=== PATIENT | female | born 1980 | race Caucasian/White ===

== ENCOUNTER 2016-06-03 01:17 | Emergency (ER) | payer SELFPAY ==
[~2016-06-03] VITALS: Ht 167.6 cm; Wt 72.6 kg
[2016-06-03 01:38] VITALS: BP 118/66
[2016-06-03] MEDS ORDERED: ONDANSETRON 4 MG (ZOFRAN) ORAL DISSOLVE TAB SL ONE (01:45)
== END 2016-06-03 02:32 | disposition left against medical advice (07) ==
LOC: EDUNIT# 01:17 → ER 01:22
DX: R42 Dizziness and giddiness (principal); R11.10 Vomiting, unspecified; Z53.21 Procedure and treatment not carried out due to patient leaving prior to being seen by health care provider
CPT/HCPCS: 99283

== ENCOUNTER → 2019-06-11 | Outpatient (CLI) | payer BC ==
--- NOTE | 2019-06-11 13:04 | Diagnostic Imaging Report ---
PROCEDURE: US Non-ob pelvis comp/trans. TECHNIQUE: Multiple realtime grayscale images were obtained of the pelvis in various projections endovaginally. Transabdominal imaging was also performed. INDICATION: Enlarged uterus. FINDINGS: Uterus is anteverted and measures 9.5 x 6.3 x 8.6 cm. Endometrial thickness is 1.3 cm. There are no discrete myometrial masses. Both ovaries are normal in size, morphology and demonstrate normal blood flow. There are no adnexal masses. There is no free pelvic fluid. IMPRESSION: Thickened heterogeneous endometrium measuring up to 1.3 cm. Presumably related to proliferative phase of patient's menstrual cycle. Recommend clinical correlation and follow-up ultrasound as clinically warranted. Otherwise unremarkable pelvic ultrasound. Dictated by: Dictated on workstation # [id number]
--- NOTE | 2019-06-12 11:10 | Diagnostic Imaging Report ---
INDICATION: Screening The current study was also evaluated with a Computer Aided Detection (CAD) system. 3-D Tomographic imaging was also performed. No prior examinations are available for comparison. This is baseline exam. FINDINGS: There has been bilateral breast augmentation with implant. The thyroid gland tissue is heterogeneously dense. There are benign type calcifications. There is no dominant mass, lesion or suspicious calcification identified. Skin, nipples and axilla are unremarkable. IMPRESSION: Category 2 benign ACR BI-RADS Category 2: Benign findings. Result letter will be mailed to the patient. Note: At least 10% of breast cancer is not imaged by mammography. Dictated by: Dictated on workstation # [id number]
== END ==
LOC: RAD 11:02
PROVIDERS: ATTEND Obstetrics & Gynecology
DX: Z12.31 Encounter for screening mammogram for malignant neoplasm of breast (principal); N85.2 Hypertrophy of uterus
CPT/HCPCS: 76830; 76856; 77067

== ENCOUNTER 2019-06-17 05:51 | Outpatient (CLI) | payer BC ==
[~2019-06-17] VITALS: Ht 165.1 cm; Wt 75.9 kg
[2019-06-17] MEDS ORDERED: ASCO500C17 PO (12:32)
[2019-06-17] MEDS ORDERED: FERR325T18 PO (12:32)
[2019-06-17] MEDS ORDERED: CHOL500049 PO (12:32)
[2019-06-17] MEDS ORDERED: MULT-884 PO (12:32)
== END 2019-06-17 12:39 | disposition home or self-care (01) ==
LOC: PREOP 05:51
PROVIDERS: ATTEND Obstetrics & Gynecology
DX: Z01.818 Encounter for other preprocedural examination (principal)

== ENCOUNTER 2019-06-21 06:55 | Day surgery (SDC) | payer BC ==
[2019-06-21] VITALS (14 sets, daily range): BP systolic 75–122; BP diastolic 42–102
[~2019-06-21] VITALS: Ht 165.1 cm; Wt 75.9 kg
[~2019-06-21 06:55] MED LIST: ASCO500C17 PO; CHOL500049 PO; FERR325T18 PO; MULT-884 PO
[2019-06-21] MEDS ORDERED: ceFAZolin INJECTION 1,000 MG in WATER (STERILE) FOR INJECTION 10 ML IV ONE (07:15)
[2019-06-21] MEDS ORDERED: metroNIDAZOLE 500MG/100ML IVPB 100 ML IV ONE (07:15)
[2019-06-21] MEDS: LACTATED RINGERS 1,000 ML IV PRN ×2 (07:23→09:30)
[2019-06-21] MEDS ORDERED: CATHETER FLUSH 10 ML SYR IV PRN (07:30)
[2019-06-21 07:32] LABS: BASOPHILS % (AUTO) 0 % (0-10); EOSINOPHILS # (AUTO) 0.1 10^3/uL (0.0-0.3); EOSINOPHILS % (AUTO) 2 % (0-10); HEMATOCRIT 37 % (35-52); HEMOGLOBIN 12.1 G/DL (11.5-16.0); LYMPHOCYTES # (AUTO) 1.3 X 10^3 (1.0-4.0); LYMPHOCYTES % (AUTO) 31 % (12-44); MEAN CORPUSCULAR HEMOGLOBIN 30 PG (25-34); MEAN CORPUSCULAR HGB CONC 33 G/DL (32-36); MEAN CORPUSCULAR VOLUME 92 FL (80-99); MEAN PLATELET VOLUME 11.1 FL (7.4-10.4); MONOCYTES # (AUTO) 0.4 X 10^3 (0.0-1.0); MONOCYTES % (AUTO) 8 % (0-12); NEUTROPHILS # (AUTO) 2.5 X 10^3 (1.8-7.8); NEUTROPHILS % (AUTO) 58 % (42-75); PLATELET COUNT 192 10^3/uL (130-400); RED CELL DISTRIBUTION WIDTH 13.5 % (10.0-14.5); WHITE BLOOD COUNT 4.2 10^3/uL (4.3-11.0)
[2019-06-21] MEDS ORDERED: BUPIVACAINE 0.25% 30 ML (SENSORCAINE) VIAL ONE (08:02)
[2019-06-21] MEDS ORDERED: SEVOFLURANE (ULTANE) 15 ML INHAL SOLN ONE ×4 (08:04→10:15)
[2019-06-21] MEDS ORDERED: proPOfol 200 MG/20 ML (DIPRIVAN) VIAL IV ONE (08:04)
[2019-06-21] MEDS ORDERED: ONDANSETRON 4 MG/2 ML (SDV) Z0FRAN ONE (08:04)
[2019-06-21] MEDS ORDERED: DEXAMETHASONE 10 MG/ML (DECADRON) 1 ML VIAL ONE (08:04)
[2019-06-21] MEDS ORDERED: ROCURONIUM 10 MG/ML 5 ML SYRINGE IV ONE (08:04)
[2019-06-21] MEDS ORDERED: fentaNYL INJECTION 100 MCG/2 ML AMP ONE ×2 (08:05→10:19)
[2019-06-21] MEDS ORDERED: MIDAZOLAM 2 MG/2 ML (VERSED) VIAL ONE (08:05)
--- NOTE | 2019-06-21 08:09 | Progress Note-Pre Operative ---
Pre-Operative Progress Note H&P Reviewed The H&P was reviewed, patient examined and no changes noted. Date Seen by Provider: Jun 21, 2019 Time Seen by Provider: 08:00 Date H&P Reviewed: Jun 21, 2019 Time H&P Reviewed: 07:30 Pre-Operative Diagnosis: menorrhagia, hydrosalpinx/tubal cysts, thickened endometrium MANUEL RUSSO DO Jun 21, 2019 08:09
[2019-06-21] MEDS ORDERED: KETOROLAC 30 MG/ML VIAL ONE (10:18)
[2019-06-21] MEDS ORDERED: D5 LR IV SOLUTION 1,000 ML IV SCH (10:29)
--- NOTE | 2019-06-21 10:29 | Operative Report ---
Operative Report Date of Procedure/Surgery Jun 21, 2019 Surgeon (s) MANUEL RUSSO DO Language Specialist (s): None Post-Operative Diagnosis endometrial polyp menorrhagia endometriosis hydrosalpinx Procedure Performed hysteroscopy with dilation and curettage, Samanta ablation laparoscopy with fulgeration of endometriosis bilateral salpingectomy Description of Procedure Anesthesia Type: General Estimated blood loss (mL): minimal Specimen(s) collected/removed endometrial curettings bilateral tubes Description of the Procedure with informed consent the patient was taken to the operating room where general anesthesia was found to be adequate. She was prepped and draped in the usual sterile fashion in the dorsolithotomy position. A salgado catheter was placed in the bladder, to be removed after the surgery. A speculum was placed in the vagina and the cervix was grasped with a tenaculum. The cervix was gently dilated with cervical dilators and the uterus was then gently sounded. The uterine length was noted to be 6.2 cm. A hysteroscope was done revealing the above mentioned findings. I then did a curette with a sharp curette removing the polypoid and proliferative tissue. there also appeared to be a posterior submucosal fibroid. I then did a Samanta endometrial ablation with the standard procedure. After taking the proper measurements, the device was initiated and deployed and the ablation for 120 seconds. I then removed the instruments from the vagina and a sponge stick was placed in the posterior culdesac to provide a means of manipulation of the uterus. the patient was repositioned and then the umbilicus was injected with 0.5% Marcaine. A 5 mm skin incision was made in the umbilicus and the veress needle was inserted and intraabdominal placement was confirmed with a saline drop test and a drop in pressure. A 5 mm trocar was inserted under direct visualization with the [employer]. Two additional trocars were placed in the left lower quadrant lateral to the recuts muscles and avoiding the inferior epigastric vessels. I then elevated each tube and incised the mesosalpinx with the Harmonic scalpel and the clamped the tube at the cornu. I clamped, cauterized and transected the tubes bilaterally removing each tube. These were removed from the abdomen with the endocatch and sending for pathology. I then suctioned the fluid from the pelvis and then cauterized the endometriosis in the culdesac and on the right uterosacral ligaments. the pelvis was irrigated again. The instruments and the gas were removed from the abdomen and the fascial incision was closed with 0 Vicryl in a figure of eight fashion. The skin then closed with 4-0 Monocryl and then skin glue. Bandages were placed. The patient was then awakened and taken to recovery in a stable condition. Sponge, lap, needle and instrument counts were correct times two. Findings of the Procedure enlarged uterus with proliferative, polypoid appearing tissue normal tubes with mild clubbing endometriosis and free fluid in the culdesac normal appendix Allergies and Home Medications Allergies Coded Allergies: No Known Drug Allergies (Unverified , 10/19/10) Home Medications Acetaminophen 500 Mg Tablet, 500 MG PO Q8H Prescribed by: MANUEL RUSSO on 06/21/19 1032 Ascorbic Acid 500 Mg Capsule, 500 MG PO DAILY, (Reported) Cholecalciferol (Vitamin D3) 50,000 Unit Capsule, 50,000 UNIT PO twice a week, (Reported) Ferrous Sulfate 325 Mg Tablet, 325 MG PO DAILY, (Reported) Ibuprofen 600 Mg Tablet, 600 MG PO Q6H Prescribed by: MANUEL RUSSO on 06/21/19 1032 Multivits,Ca,Minerals/Iron/FA 1 Each Tablet, 1 EACH PO DAILY, (Reported) Oxycodone Hcl 5 Mg Tab, 5 MG PO Q4H PRN for PAIN-SEVERE Prescribed by: MANUEL RUSSO on 06/21/19 1032 Patient Home Medication List Home Medication List Reviewed: Yes MANUEL RUSSO DO Jun 21, 2019 10:29
[2019-06-21] MEDS ORDERED: ACETAMINOPHEN 500 MG TAB (TYLENOL) PO PRN (10:30)
[2019-06-21] MEDS ORDERED: KETOROLAC 30 MG/ML VIAL IVP ONE (10:30)
[2019-06-21] MEDS ORDERED: ONDANSETRON 4 MG/2 ML (SDV) Z0FRAN IVP PRN (10:30)
[2019-06-21] MEDS ORDERED: ACET-2267 PO (10:32)
[2019-06-21] MEDS ORDERED: OXC5T PO (10:32)
[2019-06-21] MEDS ORDERED: IBUP-1773 PO (10:32)
--- NOTE | 2019-06-21 10:33 | Discharge Inst-Women's Service ---
Discharge Inst-Women's Serv Depart Medication/Instructions New, Converted or Re-Newed RX: RX on Chart Final Diagnosis menorrhagia endometrial polyp endometriosis Problems Reviewed?: Yes Consults/Follow Up Additional Follow Up: Yes (1-2 weeks/Christina and 6 weeks/Armando) Activity Activity: Activity as Tolerated Driving Instructions: No Driving for 24 Hours NO SMOKING: NO SMOKING Nothing Inside Vagina: No Douching, No [place], No Tampons Diet Discharge Diet: No Restrictions Symptoms to Report to : Bleeding Excessive, Pain Increased, Fever Over 101 Degrees F, Vaginal Bleeding Increase, Cramps in Feet or Legs, Vaginal Discharge Foul For Any Problems or Questions: Contact Your Physician Skin/Wound Care Infection Signs and Symptoms: Increased Redness, Foul Odor of Wound, Increased Drainage, Skin Itchy or Has a Rash, Increased Swelling, Temperature Above 101 F Operative Area Clean and Dry: You May Remove Bandage (in 3 days) Stitches/Maria Luisa/Dermabond: Dermabond Bathing Instructions: MANUEL Scruggs DO Jun 21, 2019 10:33
--- NOTE | 2019-06-21 10:39 | Anesthesia-General Post-Op ---
General Patient Condition Mental Status/LOC: Same as Preop Cardiovascular: Satisfactory Nausea/Vomiting: Absent Respiratory: Satisfactory Pain: Controlled Complications: Absent Post Op Complications Complications None Follow Up Care/Instructions Patient Instructions None needed. Anesthesia/Patient Condition Patient Condition Patient is doing well, no complaints, stable vital signs, no apparent adverse anesthesia problems. No complications reported per nursing. EULALIO NORMAN CRNA Jun 21, 2019 10:39
[2019-06-21] MEDS ORDERED: fentaNYL INJECTION 100 MCG/2 ML AMP IVP ONE ×2 (10:45→12:30)
[2019-06-21] MEDS ORDERED: MEPERIDINE (DEMEROL) INJ 50 MG/ML IVP ONE (10:45)
[2019-06-21] MEDS ORDERED: morphine INJ 10 MG/ML 1ML (SYR OR VIAL) IVP ONE (10:45)
[2019-06-21] MEDS: ONDANSETRON 4 MG/2 ML (SDV) Z0FRAN IVP PRN ×2 (10:49→11:28)
[2019-06-21] MEDS ORDERED: IBUPROFEN 800 MG (MOTRIN) TAB PO SCH (12:00)
--- NOTE | 2019-06-21 12:10 | NUR ---
PT C/O PERSISTENT NAUSEA ET SEVERE PAIN NEAR UMBILICAL INCISION. WING SCORER NOTIFIED. ORDERS REC'D
[2019-06-21] MEDS ORDERED: PROMETHAZINE INJ 25 MG/ML (PHENERGAN) AMP ONE (12:13)
[2019-06-21] MEDS ORDERED: D5 LR IV SOLUTION 1,000 ML IV ONE (12:28)
[2019-06-21] MEDS ORDERED: PROMETHAZINE INJ 25 MG/ML (PHENERGAN) AMP IVP ONE (12:30)
--- NOTE | 2019-06-21 12:45 | NUR ---
PT RESTING WITH EYES CLOSED. RESPS EVEN ET UNLABORED.
--- NOTE | 2019-06-22 16:23 | Anesthesia-General Post-Op ---
General Patient Condition Mental Status/LOC: Same as Preop Cardiovascular: Satisfactory Nausea/Vomiting: Absent Respiratory: Satisfactory Pain: Controlled Complications: Absent Post Op Complications Complications None Follow Up Care/Instructions Patient Instructions None needed. Anesthesia/Patient Condition Patient Condition Patient is doing well, no complaints, stable vital signs, no apparent adverse anesthesia problems. No complications reported per nursing. EULALIO NORMAN CRNA Jun 22, 2019 16:23
--- OUTSIDE RECORDS SUMMARY | 2019-06-27 13:24 | XMS REPORT ---
Author Author [employer] Organization [employer] Address [address] [address] Care Team Providers Care Spotlight Operator Name Role Phone DOT MARTINEZ MD Unavailable Unavailable Unavailable Unavailable DOT MARTINEZ MD Unavailable Unavailable MANUEL RUSSO DO Unavailable Unavailable DO Ary DANIEL PCP Allergies Normalized Allergy Reported Date of Reaction(s) Care Provider Facility Allergy Type classification allergen Allergy Onset DA (3 Unclassified No Known Drug 10-19-2010 - no information DOT Not Available sources.) Allergies MICHELLE (71105) Medications Medication Ingredient Drug Dose Dates Status Sig Sig Care Class(es) (Normalized) (Original) Provid er no Ascorbic Vitamin C Active no Ascorbic no information Acid information Acid Active name (1 source.) 500 ORAL (no Daily phone) no Cholecalcif Vitamin D Active no Cholecalcife no information sherine information rol (Vitamin name (1 source.) D3) Active (no 59722 ORAL phone) Twice A Week ferrous ferrous no Active no Ferrous no sulfate 325 sulfate information information Sulfate name mg oral Active 325 (no tablet (1 ORAL Daily phone) source.) no Multivits,C no Active no Multivits,Ca no information a,Minerals/ information information ,Minerals/Ir name (1 source.) Iron/Fa on/Fa Active (no 1 ORAL Daily phone) Problems Active Problems Problem Normalized Date of Normalized Normalized Provider Fac ility Classification Problem(s) Problem Problem Problem Sta tus Onset/Resoluti Duration on Deficiency and Anemia Episodic Active DO JULIA Cee nsion Via other anemia FREDY [address] [place] (1 source.) [facility] ([address]) Conditions Dizziness and 06-06-2019 - Episodic Active DOT [facility] Via associated giddiness [place] MARTINEZ with dizziness [facility] - or vertigo (8 [place] sources.) ([address]) Other Encounter for 06-12-2019 - Episodic Active MANUEL Ibarra [facility] Via screening for screening DO [facility] suspected mammogram for Hospital - conditions malignant [place] (not mental neoplasm of ([address]347) disorders or breast infectious disease) (3 sources.) Genitourinary Endometrium Chronic Active DO JULIA As cension Via symptoms and thickened [place]ENDER [address] [facility] ill-defined Hospital conditions (1 ([address]) source.) Other female Hypertrophy of 06-12-2019 - Episodic Active RALPH RUSSO [facility] Via genital uterus DO [place] disorders (3 Hospital - sources.) [place] ([address]) Menstrual Menorrhagia Chronic Active DO JULIA Ascens ion Via disorders (1 [place]ENDER [address] [facility] source.) Hospital ([address]) Residual Procedure and 06-06-2019 - Episodic Active DOT [facility] Via codes; treatment not [place] MARTINEZ unclassified carried out [facility] - (4 sources.) due to patient [place] leaving prior ([address]) to being seen by health care provider Nausea and Vomiting, 06-06-2019 - Episodic Active DOT [facility] Via vomiting (2 unspecified [place] MARTINEZ sources.) [facility] [place] ([address]) Past or Other Problems Problem Normalized Date of Normalized Normalized Provider Fac ility Classification Problem(s) Problem Problem Problem Sta tus Onset/Resoluti Duration on Nausea and Vomiting, no information no information DOT N ot Available vomiting (2 unspecified BR[place]RIQUEMANN , ([address]) sources.) MD Procedures Procedure Normalized Procedure Procedure Result Performer Facility Date 06-11-2019 Pelvic echography no information no name (no phone) [facility] ([address]) Immunizations The data below is from unstructured sources Immunization Event Date Not Given Reason Dose Number Economic Specialist Lot Number Vaccine Information Statement (VIS) Deta il Results The data below is from unstructured sources Report Dictated Date/Time Dictated By Status June 11, 2019 12:56pm JOSETTE LEE MD completed NAME: ARJUN RO [facility] REC#: [id number] PT STATUS: REG CLI : 1980 PHYSICIAN: MANUEL RUSSO DO ADMIT DATE: 06/11/19/RAD Signed Date of Exam:06/11/19 US NON OB PELVIS COMP/TRANSVAG PROCEDURE: US Non-ob pelvis comp/trans. TECHNIQUE: Multiple realtime grayscale images were obtained of the pelvis in various projections endovaginally. Transabdominal imaging was also performed. INDICATION: Enlarged uterus. FINDINGS: Uterus is anteverted and measures 9.5 x 6.3 x 8.6 cm. Endometrial thickness is 1.3 cm. There are no discrete myometrial masses. Both ovaries are normal in size, morphology and demonstrate normal blood flow. There are no adnexal masses. There is no free pelvic fluid. IMPRESSION: Thickened heterogeneous endometrium measuring up to 1.3 cm. Presumably related to proliferative phase of patient's menstrual cycle. Recommend clinical correlation and follow-up ultrasound as clinically warranted. Otherwise unremarkable pelvic ultrasound. Dictated by: Dictated on workstation # [id number] Dict: 06/11/19 1256 Trans: 06/11/19 1447 TS [id number] Interpreted by: JOSETTE LEE MD Electronically signed by: JOSETTE LEE MD 06/11/191446June 12, 2019 11:07am JOSETTE LEE MD completed NAME: ARJUN RO [facility] REC#: [id number] PT STATUS: REG CLI : 1980 PHYSICIAN: MANUEL RUSSO DO ADMIT DATE: 06/11/19/RAD Signed Date of Exam:06/11/19 MAMMO BILATERAL SCREENING INDICATION: Screening The current study was also evaluated with a Computer Aided Detection (CAD) system. 3-D Tomographic imaging was also performed. No prior examinations are available for comparison. This is baseline exam. FINDINGS: There has been bilateral breast augmentation with implant. The thyroid gland tissue is heterogeneously dense. There are benign type calcifications. There is no dominant mass, lesion or suspicious calcification identified. Skin, nipples and axilla are unremarkable. IMPRESSION: Category 2 benign ACR BI-RADS Category 2: Benign findings. Result letter will be mailed to the patient. Note: At least 10% of breast cancer is not imaged by mammography. Dictated by: Dictated on workstation # [id number] Dict: 06/12/19 1107 Trans: 06/12/19 1135 [facility] [id number] Interpreted by: JOSETTE LEE MD Electronically signed by: JOSETTE LEE MD 06/12/19 1135 Vital Signs The data below is from unstructured sourcesNo vital signs result information available. Interventions No Information Plan of Treatment No Information Goals Patient Goal Desired Goal no information no information Social History Normalized Code Original Code Date Value Tobacco smoking status Tobacco smoking status no information Never smoked tobacco NHIS NHIS (finding) no information no information 06-17-2019 Occasionally Us es no information no information 06-17-2019 No no information no information 06-17-2019 Never a Smoker Sex Assigned At Sex Assigned At no information F emale Functional Status The data below is from unstructured sourcesNo Functional Status information available Mental Status The data below is from unstructured sourcesNo Mental Status Information Available Encounters Encounter Normalized Encounter Encounter Diagnosis Care Provi carolyn Organization Date Type 06-03-2016 Emergency department no information no name (no juan ne) no organization name - patient visit (no phone) 06-03-2016 06-02-2016 Emergency department no information DOT BLANK [facility] [place] - patient visit (no phone) [facility] 06-02-2016 (no phone) 06-17-2019 Patient encounter no information (no phone) [facility] (no phone) 06-17-2019 06-17-2019 Patient encounter no information MANUEL RUSSO DO ( no [facility] [place] - procedure phone) [facility] 06-17-2019 (no phone) 06-11-2019 Patient encounter no information (no phone) [facility] (no phone) 06-11-2019 Patient encounter no information MANUEL RUSSO DO ( no [facility] [place] procedure phone) [facility] (no phone) 06-03-2016 Patient encounter no information no name (no phone) no organization name procedure (no phone) 06-18-2019 no information Encounter for other no name (no phon e) no organization name preprocedural (no phone) examination Medical Equipment The data below is from unstructured sourcesNo Medical Equipment Information available Payers Normalized Payer Value [facility] no information ([id number]) Private Health Insurance [id number] Evaluation note Note Type Note Facility Evaluation No Assessments Information Available A scension note Via [facility] ([id number]) Advance Directives Advance Directive Response Recorded Date/Time Advance Directives No Paula andrews 2019 12:21pm Resuscitation Status Full Code June 17, 2019 12:21pm Additional Source Comments This clinical document has been generated using [employer] software that has been certified by the Office of the National Coordinator for Health Information Technology (ONC 15.99.04.3023.Diam.[id number]) and the National Committee for [employer] (NCQA, as an eMeasure certified technology). FOR RECORDS PERTAINING TO PATIENTS WHO ARE OR HAVE BEEN ENROLLED IN A CHEMICAL D EPENDENCY/SUBSTANCE ABUSE PROGRAM, SOME INFORMATION MAY BE OMITTED. This clinica l summary was aggregated from multiple sources. Caution should be exercised in using it in the provision of clinical care. This summary normalizes information from multiple sources, and as a consequence, information in this document may ma terially change the coding, format and clinical context of patient data. In rolando tion, data may be omitted in some cases. CLINICAL DECISIONS SHOULD BE BASED ON T HE PRIMARY CLINICAL RECORDS. [employer] provides no warranty or guara ntee of the accuracy or completeness of information in this document.The followi ng information is based on time limited clinical information
== END 2019-06-21 14:40 | disposition home or self-care (01) ==
LOC: SDC 06:55
PROVIDERS: ATTEND Obstetrics & Gynecology
DX: N84.0 Polyp of corpus uteri (principal); N70.11 Chronic salpingitis; N80.3 Endometriosis of pelvic peritoneum; R79.89 Other specified abnormal findings of blood chemistry; Z11.2 Encounter for screening for other bacterial diseases
CPT/HCPCS: 36415; 84703; 85025; 87081; 88305; 94664

== ENCOUNTER → 2022-12-22 | Outpatient (CLI) | payer BC ==
[~2022-12-22] MED LIST changes: +ACET-2267 PO; +IBUP-1773 PO; +OXC5T PO
--- NOTE | 2022-12-22 12:51 | Diagnostic Imaging Report ---
Indication: Routine screening. Comparison is made with prior mammogram from 06/11/2019. 2-D and 3-D bilateral screening mammography was performed with CAD. The current study was also evaluated with a Computer Aided Detection (CAD) system. Bilateral subpectoral breast implants are noted. Implant contours are smooth. There is no evidence of extracapsular rupture. Both breasts are heterogeneously dense, limiting the sensitivity of mammography. The parenchymal pattern is stable. No mass or malignant-appearing microcalcifications are seen. Axillae are unremarkable. IMPRESSION: BI-RADS Category 2 No mammographic features suspicious for malignancy are identified. ACR BI-RADS Category 2: Benign findings. Result letter will be mailed to the patient. Note: At least 10% of breast cancer is not imaged by mammography. Dictated by: Dictated on workstation # [id number]
== END ==
LOC: RAD 11:02
PROVIDERS: ATTEND Family Medicine
DX: Z12.31 Encounter for screening mammogram for malignant neoplasm of breast (principal); Z90.711 Acquired absence of uterus with remaining cervical stump
CPT/HCPCS: 77063; 77067